=== PATIENT | female | born 1985 | race Caucasian/White ===

== ENCOUNTER 2024-02-28 09:01 | Emergency (ER) | payer SELFPAY ==
[~2024-02-28] VITALS: Ht 160 cm; Wt 77.2 kg
[2024-02-28 09:07] VITALS: BP 133/93; PULSE 69; RESP 14; O2SAT 98
== END 2024-02-28 11:52 | disposition left against medical advice (07) ==
LOC: EDBD 09:01 → EDUNIT# 09:01 → ER 09:01
DX: R10.9 Unspecified abdominal pain (principal); Z53.21 Procedure and treatment not carried out due to patient leaving prior to being seen by health care provider